=== PATIENT | female | born 2005 | race Caucasian/White ===

== ENCOUNTER 2025-03-11 15:25 | Outpatient (CLI) | payer OTHER, SELFPAY ==
[2025-03-11 16:23] LABS: Clue Cells >20% Clue Cells Seen (None Seen); Trichomonas No Trichomonas Seen (None Seen); Yeast No Yeast Seen (None Seen)
[2025-03-11 19:25] LABS: Chlamydia DNA Amplified* NOT DETECTED (No Detected); GC DNA Amplified* NOT DETECTED (No Detected)
[2025-03-11 22:52] LABS: HIV 1/2/P24 Combo Screen* Negative (Negative)
[2025-03-13 22:34] LABS: Rapid Plasma Reagin (RPR) Non Reactive (Non Reactive)
[2025-03-14 09:47] LABS: HPV Source Cervix; HPV, High Risk by TMA Not Detected
== END 2025-03-11 15:26 | disposition home or self-care (01) ==
PROVIDERS: PCP Family Medicine; Visit Provider Family Medicine
DX: N89.8 Other specified noninflammatory disorders of vagina (principal); Z12.4 Encounter for screening for malignant neoplasm of cervix; Z11.3 Encounter for screening for infections with a predominantly sexual mode of transmission; Z11.51 Encounter for screening for human papillomavirus (HPV); Z11.4 Encounter for screening for human immunodeficiency virus [HIV]
CPT/HCPCS: 86592; 86703; 87210; 87491; 87591; 87624; 87625; 88141; 88142